=== PATIENT | male | born 1955 | race Hispanic/Latino ===

== ENCOUNTER → 2016-10-11 | Outpatient (CLI) | payer BC | END | disposition home or self-care (01) | LOC: GMAB 10:56 | PROVIDERS: ATTEND Family Medicine | DX: M54.5 Low back pain (principal); I73.9 Peripheral vascular disease, unspecified; G60.3 Idiopathic progressive neuropathy; R20.2 Paresthesia of skin ==

== ENCOUNTER → 2018-07-10 | Outpatient (CLI) | payer BC | LOC: GMAE 11:45 | PROVIDERS: ATTEND Family Medicine | DX: R94.5 Abnormal results of liver function studies (principal) ==

== ENCOUNTER → 2018-07-13 | Outpatient (CLI) | payer BC ==
--- NOTE | 2018-07-13 13:43 | US ---
EXAM DESCRIPTION: Liver: ULTRASOUND. CLINICAL HISTORY: ABNORMALITY OF LIVER FUNCTION STUDY COMPARISON: None. TECHNIQUE: Transabdominal scannin-dimensional and Doppler modes. FINDINGS: Gallbladder: Surgically absent. No fluid in the gallbladder fossa. Common bile duct: caliber 4.8 mm within normal limits. Liver: normal echogenicity; contour liver capsule smooth where seen. No fluid around the liver. Intrahepatic biliary ducts normal caliber. Doppler hepatopedal flow portal vein. Normal caliber. Long axis right lobe 16.5 cm. Pancreas: Not well seen. Duct not seen. Right kidney: long axis measures 10.9 cm. Normal Echogenicity. Normal cortical thickness. No hydronephrosis. Aorta: Normal caliber from the proximal segment to the distal bifurcation. IMPRESSION: Gallbladder surgically removed. No free fluid. Nontender. Liver is borderline enlarged but otherwise unremarkable. Pancreas not well seen. No intrahepatic or extrahepatic biliary dilatation. Right kidney is unremarkable. Normal caliber of the IVC and abdominal aorta. Electronically signed by: Anil Martinez MD 07/13/2018 1:41 PM [facility]
== END ==
LOC: US 08:06
PROVIDERS: ATTEND Family Medicine
DX: R94.5 Abnormal results of liver function studies (principal); Z90.49 Acquired absence of other specified parts of digestive tract

== ENCOUNTER → 2018-11-22 | Outpatient (CLI) | payer BC | LOC: GMAE 15:35 | PROVIDERS: ATTEND Family Medicine | DX: E03.9 Hypothyroidism, unspecified (principal) ==

== ENCOUNTER → 2019-07-11 | Outpatient (CLI) | payer BC | LOC: GMAE 12:07 | PROVIDERS: ATTEND Family Medicine | DX: Z00.00 Encounter for general adult medical examination without abnormal findings (principal) ==

== ENCOUNTER → 2020-01-10 | Outpatient (CLI) | payer BC | LOC: GMAE 11:11 | PROVIDERS: ATTEND Family Medicine | DX: E03.9 Hypothyroidism, unspecified (principal); E11.9 Type 2 diabetes mellitus without complications; R94.5 Abnormal results of liver function studies ==

== ENCOUNTER → 2020-07-17 | Outpatient (CLI) | payer BC | LOC: GMAE 10:54 | PROVIDERS: ATTEND Family Medicine | DX: Z00.00 Encounter for general adult medical examination without abnormal findings (principal) ==